=== PATIENT | male | born 1950 | race Caucasian/White ===

== ENCOUNTER 2020-07-25 12:30 | Outpatient (CLI) | payer MEDICARE, OTHER ==
--- NOTE | 2020-07-25 15:03 | ULT ---
ULTRASOUND WITH DOPPLER DUPLEX VENOUS LOWER EXTREMITIES BILATERAL: DATE: 07/25/2020 HISTORY: 70-year-old male with bilateral lower extremity edema. TECHNIQUE: Color flow Doppler, spectral waveform analysis of pulsed Doppler, and robbins-scale imaging with gigi savanna and augmentation, were used to evaluate the bilateral common femoral, femoral, popliteal, rubber tubing backer ior tibial, and superficial femoral, veins; and the proximal portions of the profunda femoral and gre ater saphenous, veins. FINDINGS: There is normal compressibility, demonstration of blood flow by color Doppler and pulsed Doppler, and response to augmentation, in all interrogated veins. IMPRESSION: Negative. No deep vein thrombosis in the bilateral lower extremities. jn[] POS: [facility]
--- NOTE | 2020-07-27 09:38 | CCLSPC ---
PROCEDURE: Lower extremity arterial evaluation using Doppler waveform analysis and segmental limb pressures. Examination of the right leg reveals satisfactory waveforms at all levels. Ankle-arm index could not be calculated due to noncompressible, probably calcified vessels. Toe-brachial index was preserved at 0.7. Left lower extremity demonstrated normal waveforms at all levels with preserved toe-brachial index at 0.7. Once again, ankle-arm index could not be calculated due to noncompressible vessels. This study demonstrates overall well-preserved circulation to the lower extremities. However, vessels are noncompressible in the lower leg suggesting tibial artery calcification. Job ID: [id number]
== END 2020-07-25 12:31 | disposition home or self-care (01) ==
LOC: ULT 12:30
PROVIDERS: ATTEND Clinical Nurse Specialist Adult Health
DX: I87.2 Venous insufficiency (chronic) (peripheral) (principal); E11.9 Type 2 diabetes mellitus without complications; M79.661 Pain in right lower leg; M79.89 Other specified soft tissue disorders; R20.0 Anesthesia of skin; Z79.4 Long term (current) use of insulin
CPT/HCPCS: 93922; 93970

== ENCOUNTER 2022-10-01 08:24 | Outpatient (CLI) | payer MEDICARE, OTHER | END 2022-10-01 08:25 | disposition home or self-care (01) | LOC: TBSIIMAG 08:24 | PROVIDERS: ATTEND Urology | DX: R97.20 Elevated prostate specific antigen [PSA] (principal) | CPT/HCPCS: 72197; 82565 ==

== ENCOUNTER 2024-05-16 15:32 | Observation (INO) | payer MEDICARE, OTHER ==
[~2024-05-16 15:32] MED LIST: Iopamidol-370 76% 500 ML MDV (1 ML CHARGE) ONE
[2024-05-16] MEDS ORDERED: Aspirin Chewable 81 MG TAB ONE (16:09)
[2024-05-16 17:02] LABS: #Basophils Less than 0.03 10x3/uL (0.0-0.2); %Basophils 0.4 % (0.0-1.0); %Eosinophils 4.2 % (0.0-10.0); %Lymphocytes 23.4 % (21.0-51.0); %Monocytes 10.1 % (0.0-10.0); %Neutrophils 61.5 % (42.0-75.0); Hematocrit 39.3 % (42.0-52.0); Hemoglobin 13.8 g/dL (14.0-18.0); Mean Corpuscular HGB CONC 35.1 g/dL (32.0-36.0); Mean Corpuscular Hemoglobin 29.4 pg (27.0-31.0); Mean Corpuscular Volume 83.6 fL (78.0-98.0); Mean Platelet Volume 10.5 fL (7.4-10.4); Platelet Count 205 10x3/uL (130-400); RBC Distribution Width 14.1 % (11.5-14.5)
[2024-05-16 17:16] LABS: INR-International Normal Ratio 0.9; PTT 27.9 sec (22.9-36.1); Prothrombin Time 12.2 sec (12.0-14.7)
[2024-05-16 17:25] LABS: ALT (SGPT) 20 U/L (8-55); AST (SGOT) 24 U/L (5-34); Albumin 4.1 g/dL (3.4-4.8); Alkaline Phosphatase 43 U/L (40-110); Anion Gap 17 mmol/L (10-20); BUN (Urea Nitrogen) 21 mg/dL (8.4-25.7); Bilirubin, Total 0.6 mg/dL (0.2-1.2); Calc. Creatinine Clearance 0 mL/min (70-130); Calcium 9.6 mg/dL (7.8-10.44); Carbon Dioxide 23 mmol/L (23-31); Chloride 100 mmol/L (98-107); Estimated GFR 64; Glucose 114 mg/dL (83-110); Iron 87 ug/dL (65-175); Iron Binding Capacity, Total 371 mcg/dL (261-462); Magnesium 1.6 mg/dL (1.6-2.6); Potassium 4.4 mmol/L (3.5-5.1); Protein, Total 7.1 g/dL (5.8-8.1); Sodium 136 mmol/L (136-145)
[2024-05-16] MEDS ORDERED: hydrALAZINE 20 MG/ML VIAL SLOW IVP PRN (18:53)
[2024-05-16] MEDS ORDERED: Glucagon 1 MG/ML KIT IM PRN (18:53)
[2024-05-16] MEDS ORDERED: HumaLOG 300 UNITS/3 ML VIAL SC PRN ×2 (18:53)
[2024-05-16] MEDS ORDERED: Ondansetron ODT 4 MG TAB PO PRN (18:53)
[2024-05-16] MEDS ORDERED: Dextrose 50% Abboject 50 ML SYRINGE SLOW IVP PRN (18:53)
[2024-05-16] MEDS ORDERED: Ondansetron PF 4 MG/2 ML Vial IVP PRN (18:53)
[2024-05-16] MEDS ORDERED: Dextrose 5% in Water 1,000 ML IV PRN (18:53)
[2024-05-16] MEDS ORDERED: Acetaminophen 325 MG TAB PO PRN (18:53)
[2024-05-16 20:05] VITALS: BMI 36.1
[2024-05-16] MEDS: Rosuvastatin 20 MG TAB PO SCH (20:20)
[2024-05-16 20:53] LABS: Lactic Acid 0.7 mmol/L (0.5-2.2)
[2024-05-17 06:38] LABS: #Basophils 0.03 10x3/uL (0.0-0.2); %Basophils 0.7 % (0.0-1.0); %Eosinophils 5.3 % (0.0-10.0); %Lymphocytes 27.9 % (21.0-51.0); %Monocytes 13.1 % (0.0-10.0); %Neutrophils 52.8 % (42.0-75.0); Hematocrit 41.4 % (42.0-52.0); Mean Corpuscular HGB CONC 33.8 g/dL (32.0-36.0); Mean Corpuscular Hemoglobin 28.2 pg (27.0-31.0); Mean Corpuscular Volume 83.3 fL (78.0-98.0); Mean Platelet Volume 10.9 fL (7.4-10.4); Platelet Count 191 10x3/uL (130-400); RBC Distribution Width 14.2 % (11.5-14.5); Red Blood Cell (RBC) Count 4.97 mill/uL (4.70-6.10)
[2024-05-17 07:13] LABS: Anion Gap 14 mmol/L (10-20); BUN (Urea Nitrogen) 19 mg/dL (8.4-25.7); Calc. Creatinine Clearance 81 mL/min (70-130); Calcium 9.9 mg/dL (7.8-10.44); Carbon Dioxide 24 mmol/L (23-31); Cardiac Risk 3.3 (Less than 4.5); Chloride 103 mmol/L (98-107); Cholesterol 135 mg/dl (< 200 Desired); Estimated GFR 73; Glucose 116 mg/dL (83-110); HDL Cholesterol 41 mg/dL (>60 Neg Risk); LDL Cholesterol, Calculated 77 mg/dL; Magnesium 1.8 mg/dL (1.6-2.6); Potassium 4.6 mmol/L (3.5-5.1); Sodium 136 mmol/L (136-145); Triglycerides 86 mg/dL (Less than 150)
[2024-05-17 07:59] LABS: Hemoglobin A1c 6.5 % (4.0-6.0)
[2024-05-17] MEDS ORDERED: Non-Formulary Item 1 EACH (Ferrous Gluconate [Ferrous Gluconate] 324 MG Tablet) PO SCH (09:00)
[2024-05-17] MEDS: Ferrous Gluconate 324 MG TAB PO SCH (10:16)
[2024-05-17] MEDS: Pioglitazone HCl 15 MG TAB PO SCH (10:17)
[2024-05-17] MEDS: Aspirin 81 mg Enteric Coated Tablet PO SCH (10:17)
[2024-05-17] MEDS ORDERED: Non-Formulary Item 1 EACH (Famotidine [Pepcid] 40 MG Tablet) PO SCH (21:00)
[2024-05-17] MEDS: Famotidine 20 MG TAB PO SCH (21:30)
[2024-05-18 07:15] LABS: Anion Gap 16 mmol/L (10-20); BUN (Urea Nitrogen) 16 mg/dL (8.4-25.7); Calc. Creatinine Clearance 88 mL/min (70-130); Calcium 9.8 mg/dL (7.8-10.44); Carbon Dioxide 22 mmol/L (23-31); Chloride 103 mmol/L (98-107); Estimated GFR 80; Glucose 152 mg/dL (83-110); Potassium 4.2 mmol/L (3.5-5.1); Sodium 137 mmol/L (136-145)
[2024-05-18 07:29] LABS: Hematocrit 41.7 % (42.0-52.0)
[2024-05-18 08:05] VITALS: BP 110/70; TEMP 98.3
[2024-05-18 08:45] LABS: #Basophils Less than 0.03 10x3/uL (0.0-0.2); %Basophils 0.4 % (0.0-1.0); %Eosinophils 5.6 % (0.0-10.0); %Lymphocytes 24.7 % (21.0-51.0); %Neutrophils 57.1 % (42.0-75.0); Hemoglobin 14.2 g/dL (14.0-18.0); Mean Corpuscular HGB CONC 34.1 g/dL (32.0-36.0); Mean Corpuscular Hemoglobin 28.6 pg (27.0-31.0); Mean Corpuscular Volume 83.9 fL (78.0-98.0); Mean Platelet Volume 11.2 fL (7.4-10.4); Platelet Count 206 10x3/uL (130-400); RBC Distribution Width 14.3 % (11.5-14.5); Red Blood Cell (RBC) Count 4.97 mill/uL (4.70-6.10)
== END 2024-05-18 13:05 | disposition home or self-care (01) ==
LOC: ERS 15:32 → 2SE 18:13
PROVIDERS: ADMIT Physician Assistant; ATTEND Internal Medicine
DX: G45.9 Transient cerebral ischemic attack, unspecified (principal); E11.9 Type 2 diabetes mellitus without complications; E78.5 Hyperlipidemia, unspecified; Z96.652 Presence of left artificial knee joint; Z98.890 Other specified postprocedural states; Z79.899 Other long term (current) drug therapy
CPT/HCPCS: 70496; 70498; 70551; 80048 ×2; 80053; 80061; 82728; 82962 ×3; 83036; 83540; 83550; 83605; 83735 ×2; 84443; 85025 ×3; 85610; 85730; 86850; 86900; 86901; 93005; 99285; G0378 ×4; Q9967; 36415; 36416